=== PATIENT | female | born 1965 | race Hispanic/Latino ===

== ENCOUNTER 2018-08-11 20:08 | Emergency (ER) | payer BC ==
--- NOTE | 2018-08-11 20:45 | ED PDOC ---
Arrival/HPI - General Historian: Patient - History of Present Illness Narrative History of Present Illness (Text): 08/11/18 20:41 52 y/o female, post menopausal, no significant pmh, nkda, last tetanus doesn't remember, c/o rt. hand splinter stucked in the rt. hand palm x 6 hours. Pt. stated that she was grabbing an object contains splinter, poked on the rt. hand palmar region, no numbness or tingling, no fever or chills, no headache or night sweat, no rash, no other medical or psychological complaints. Past Medical History - Provider Review Nursing Documentation Reviewed: Yes Family/Social History - Physician Review Nursing Documentation Reviewed: Yes Family/Social History: Unknown Family HX Allergies/Home Meds Allergies/Adverse Reactions: Allergies No Known Allergies Allergy (Verified 08/11/18 20:43) Review of Systems - Review of Systems Constitutional: absent: Fatigue, Fevers Eyes: absent: Vision Changes ENT: absent: Hearing Changes Respiratory: absent: SOB, Cough, Sputum Cardiovascular: absent: Chest Pain Gastrointestinal: absent: Abdominal Pain, Nausea, Vomiting Musculoskeletal: absent: Arthralgias, Back Pain Skin: Other (Splinter). absent: Rash, Pruritis Neurological: absent: Headache, Dizziness Hemo/Lymphatic: absent: Adenopathy, Easy Bleeding Psychiatric: absent: Anxiety, Depression, Suicidal Ideation Physical Exam Vital Signs Reviewed: Yes Vital Signs Temp Pulse Resp BP Pulse Ox 08/11/18 20:38 98.2 F 82 17 120/78 97 Temperature: Afebrile Blood Pressure: Normal Pulse: Regular Respiratory Rate: Normal Appearance: Positive for: Well-Appearing, Non-Toxic, Comfortable Pain Distress: None Mental Status: Positive for: Alert and Oriented X 3 - Systems Exam Head: Present: Atraumatic, Normocephalic Pupils: Present: PERRL Extroacular Muscles: Present: EOMI Conjunctiva: Present: Normal Mouth: Present: Moist Mucous Membranes Neck: Present: Normal Range of Motion Respiratory/Chest: Present: Clear to Auscultation, Good Air Exchange. No: Respiratory Distress, Accessory Muscle Use Cardiovascular: Present: Regular Rate and Rhythm, Normal S1, S2. No: Murmurs Abdomen: No: Tenderness, Distention, Peritoneal Signs Back: Present: Normal Inspection Upper Extremity: Present: Normal Inspection, Other (Rt. hand: palpable splinter but not visible noted on the rt. hand medial palmar region with swelling, no cellulitis or ulcers, FROM without limitation, sensation intact to sharp and dull, motor 5/5, +radial pulse, capillary refill< 2 secondas, neurovascular intact. ). No: Cyanosis, Edema Lower Extremity: Present: Normal Inspection. No: Edema Neurological: Present: GCS=15, CN II-XII Intact, Speech Normal, Motor Func Grossly Intact, Normal Cerebellar Funct, Gait Normal, Memory Normal Skin: Present: Warm, Dry, Normal Color. No: Rashes Psychiatric: Present: Alert, Oriented x 3, Normal Insight, Normal Concentration Medical Decision Making ED Course and Treatment: 08/11/18 20:47 -Tdap -Keflex/percocet -Xray -Will remove the splinter note 08/11/18 21:57 PROCEDURE: FOREIGN BODY REMOVAL Performed by the emergency provider Timeout: A timeout to verify the correct patient, procedure, and site was performed immediately prior to the procedure. Indication: Foreign body in rt. hand palmar Procedure: The wound was irregated with normal saline 1000cc, clean with betadine, #11 blade incised 1cm superficially, visible the dark color wooden splinter, removed with the needle pickle pumper with 1 attempt, irrigated with normal saline 200cc, no other visible splinter noted Post-procedure: Patient tolerated the procedure well with no immediate complications. The foreign body was removed. There was no bleeding. Patient tolerated the procedure well with no immediate complications. PROCEDURE: LACERATION REPAIR Performed by the emergency provider Location: rt. hand Length: 1 cm Description: {"clean wound edges","no foreign bodies"} Distal CMS: Normal. No deficits. Neurovascularly intact. Anesthesia: Lidocaine 1% 0.5cc Preparation: The wound was cleaned with NS 1000cc and clean with betadine. The area was prepped and draped in the usual sterile fashion. Exploration: The wound was explored and no foreign bodies were found. Procedure: The wound was closed with 5-0 nylon. There was {good / appropriate / adequate / loose} approximation. In total, 1 were used. Post-Procedure: Good closure and hemostasis. The patient tolerated the procedure well and there were no complications. CSM remains intact. Post procedure dressing applied. 08/11/18 21:59 -Pt. feels well, foreign body sensation completely removed, request to be discharged home. -Discharge home with keflex, motrin, bacitracin oinment, keep suture dry and clean for 2 days, sutures need to removed by day 10, follow up with your own pmd and hand surgeon within 2 days, return to the Er for any new or worsening signs or symptoms. - PA / [employer] / Resident Statement MD/DO has reviewed & agrees with the documentation as recorded. Disposition/Present on Arrival - Present on Arrival Any Indicators Present on Arrival: No History of DVT/PE: No History of Uncontrolled Diabetes: No Urinary Catheter: No History of Decub. Ulcer: No - Disposition Have Diagnosis and Disposition been Completed?: Yes Diagnosis: Splinter in skin, Laceration Disposition: HOME/ ROUTINE Disposition Time: 22:07 Patient Plan: Discharge Condition: IMPROVED Additional Instructions: Discharge home with keflex, motrin, bacitracin oinment, keep suture dry and clean for 2 days, sutures need to removed by day 10, follow up with your own pmd and hand surgeon within 2 days, return to the Er for any new or worsening signs or symptoms. Prescriptions: Bacitracin Ointment [Bacitracin] 1 appful TOP BID #15 g Cephalexin [Keflex] 500 mg PO TID #21 capsule Ibuprofen [Motrin] 600 mg PO QID PRN #30 tab PRN Reason: Other Referrals: [facility] [place] [Outside] - Follow up with primary Jarrett Ferrell MD [Staff Provider] - Follow up with primary Forms: WORK NOTE
[2018-08-11 20:48] VITALS: TEMP 98.2; BMI 31.4
[2018-08-11] MEDS ORDERED: TDAP Vaccine 0.5 mL Syr IM ONE (21:11)
[2018-08-11] MEDS ORDERED: Oxycodone/Acetaminophen 5/325 mg Tab PO STA (21:11)
[2018-08-11] MEDS ORDERED: Lidocaine 1% Inj (20ml) ONE (21:28)
[2018-08-11 22:02] VITALS: BP 118/71; PULSE 78; RESP 18; O2SAT 98
--- NOTE | 2018-08-12 14:52 | RAD ---
PROCEDURE: Right Hand Radiographs. HISTORY: rt. hand palmar, splinter COMPARISON: None. TECHNIQUE: 3 views obtained. FINDINGS: BONES: Normal. No fracture. JOINTS: Normal. No osteoarthritic changes. SOFT TISSUES: Normal. OTHER FINDINGS: None. IMPRESSION: Normal right hand radiographs.
== END 2018-08-11 22:20 | disposition home or self-care (01) ==
LOC: ED 20:08
DX: S61.421A Laceration with foreign body of right hand, initial encounter (principal); W45.8XXA Other foreign body or object entering through skin, initial encounter; Z23 Encounter for immunization